=== PATIENT | female | born 1985 | race Caucasian/White ===

== ENCOUNTER 2018-02-05 20:07 | Outpatient (CLI) | payer MEDICAID ==
[2018-02-05 21:10] LABS: ADD MAN DIFF? NO
[2018-02-05 21:12] LABS: WHITE BLOOD COUNT 12.8 10^3/ul (4.8-10.8)
[2018-02-05 21:12] LABS: BASOPHILS % 0.2 % (0.0-2.0); EOSINOPHILS # 0.2 10^3/ul (0.0-0.5); EOSINOPHILS % 1.3 % (0.0-7.0); HEMATOCRIT 34.4 % (37.0-47.0); HEMOGLOBIN 12.2 g/dl (12.0-16.0); LYMPHOCYTES % 15.3 % (15.0-51.0); MEAN CORPUSCULAR HEMOGLOBIN 31.1 pg (29.0-33.0); MEAN CORPUSCULAR HGB CONC 35.5 g/dl (32.0-37.0); MEAN CORPUSCULAR VOLUME 87.8 fl (82.0-101.0); MEAN PLATELET VOLUME 9.8 fl (7.4-10.4); MONOCYTE # 1.1 10^3/ul (0.3-0.9); MONOCYTES % 8.7 % (0.0-11.0); NEUTROPHIL # 9.4 10^3/ul (1.6-7.5); NEUTROPHILS % 73.5 % (39.0-77.0); PLATELET COUNT 241 10^3/UL (140-415); RED BLOOD COUNT 3.92 10^6/ul (4.20-5.40); RED CELL DISTRIBUTION WIDTH 13.1 % (11.5-14.5)
[2018-02-05 21:40] LABS: ADD UMIC NO; UR ASCORBIC ACID 40 mg/dL (NEGATIVE); UR BILIRUBIN (Dip) NEGATIVE (NEGATIVE); UR BLOOD (Dip) NEGATIVE (NEGATIVE); UR CLARITY CLEAR (CLEAR); UR COLOR YELLOW (YELLOW); UR GLUCOSE (Dip) 3+ mg/dL (NEGATIVE); UR KETONES (Dip) TRACE mg/dL (NEGATIVE); UR LEUKOCYTE ESTERASE (Dip) NEGATIVE Leu/ul (NEGATIVE); UR NITRITE (Dip) NEGATIVE (NEGATIVE); UR SPECIFIC GRAVITY (Dip) 1.023 (1.003-1.030); UR TOTAL PROTEIN (Dip) NEGATIVE (NEGATIVE); UR UROBILINOGEN (Dip) NEGATIVE (NEGATIVE)
[2018-02-05 21:47] LABS: ALANINE AMINOTRANSFERASE 18 IU/L (13-69); ALBUMIN 3.1 g/dl (3.3-4.9); ALBUMIN/GLOBULIN RATIO 1.03; ALKALINE PHOSPHATASE 99 IU/L (42-121); ANION GAP 13 (8-16); ASPARTATE AMINO TRANSFERASE 16 IU/L (15-46); BILIRUBIN,INDIRECT 0.1 mg/dl (0-1.1); BILIRUBIN,TOTAL 0.1 mg/dl (0.2-1.3); BLOOD UREA NITROGEN 9 mg/dl (7-20); CALCIUM 9.1 mg/dl (8.4-10.2); CARBON DIOXIDE 24 mmol/L (21-31); CHLORIDE 107 mmol/L (97-110); CREATININE 0.38 mg/dl (0.44-1.00); GLUCOSE 109 mg/dl (70-220); POTASSIUM 3.6 mmol/L (3.5-5.1); SODIUM 140 mmol/L (135-144); TOTAL PROTEIN 6.1 g/dl (6.1-8.1); URIC ACID 4.1 mg/dl (3.1-7.9)
[2018-02-05 22:28] LABS: RUPTURE FETAL MEMBRANES NEGATIVE (NEGATIVE)
== END 2018-02-05 23:00 | disposition home or self-care (01) ==
LOC: OBT 20:07 → L-D 20:10 → OBT 23:00
DX: O26.893 Other specified pregnancy related conditions, third trimester (principal); Z3A.33 33 weeks gestation of pregnancy; N89.8 Other specified noninflammatory disorders of vagina; R10.9 Unspecified abdominal pain
CPT/HCPCS: 36415; 76817; 76818; 80053; 81003; 84112; 84560; 85025

== ENCOUNTER 2018-03-01 13:53 | Inpatient (IN) | payer MEDICAID ==
[2018-03-01] MEDS ORDERED: MISOPROSTOL 200 MCG TAB PR (16:30)
[2018-03-01] MEDS ORDERED: OXYTOCIN 30 UNITS/LR 500 ML IV (16:30)
[2018-03-01] MEDS ORDERED: METHYLERGONOVINE 0.2 MG INJ IM (16:30)
[2018-03-01] MEDS ORDERED: IBUPROFEN 600 MG TAB PO (16:30)
[2018-03-01] MEDS ORDERED: BUTORPHANOL 2 MG INJ IV (16:30)
[2018-03-01] MEDS ORDERED: CARBOPROST 250 MCG INJ IM (16:30)
[2018-03-01] MEDS ORDERED: LIDOCAINE 1% (MPF) 30 ML INJ INJ (16:30)
[2018-03-01 16:34] LABS: ADD MAN DIFF? NO
[2018-03-01 16:37] LABS: WHITE BLOOD COUNT 11.9 10^3/ul (4.8-10.8)
[2018-03-01 16:37] LABS: BASOPHILS % 0.3 % (0.0-2.0); EOSINOPHILS # 0.1 10^3/ul (0.0-0.5); EOSINOPHILS % 0.5 % (0.0-7.0); HEMATOCRIT 35.9 % (37.0-47.0); HEMOGLOBIN 12.6 g/dl (12.0-16.0); LYMPHOCYTES # 1.6 10^3/ul (0.8-2.9); LYMPHOCYTES % 13.6 % (15.0-51.0); MEAN CORPUSCULAR HEMOGLOBIN 30.9 pg (29.0-33.0); MEAN CORPUSCULAR HGB CONC 35.1 g/dl (32.0-37.0); MEAN PLATELET VOLUME 9.9 fl (7.4-10.4); MONOCYTE # 1.1 10^3/ul (0.3-0.9); MONOCYTES % 9.5 % (0.0-11.0); NEUTROPHIL # 8.9 10^3/ul (1.6-7.5); PLATELET COUNT 246 10^3/UL (140-415); RED BLOOD COUNT 4.08 10^6/ul (4.20-5.40)
[2018-03-01 16:45] LABS: INR 1.02; PROTIME 13.5 Sec (11.9-14.9); PT RATIO 1.1
[2018-03-01 16:46] LABS: PARTIAL THROMBOPLASTIN TIME 28.9 Sec (25.0-35.0)
[2018-03-01 16:51] LABS: ALANINE AMINOTRANSFERASE 22 IU/L (13-69); ALBUMIN 3.3 g/dl (3.3-4.9); ALBUMIN/GLOBULIN RATIO 1.03; ALKALINE PHOSPHATASE 139 IU/L (42-121); ANION GAP 12 (8-16); ASPARTATE AMINO TRANSFERASE 19 IU/L (15-46); BILIRUBIN,INDIRECT 0.1 mg/dl (0-1.1); BILIRUBIN,TOTAL 0.1 mg/dl (0.2-1.3); BLOOD UREA NITROGEN 8 mg/dl (7-20); CALCIUM 8.7 mg/dl (8.4-10.2); CARBON DIOXIDE 23 mmol/L (21-31); CHLORIDE 108 mmol/L (97-110); CREATININE 0.55 mg/dl (0.44-1.00); GLUCOSE 86 mg/dl (70-220); POTASSIUM 3.6 mmol/L (3.5-5.1); SODIUM 139 mmol/L (135-144); TOTAL PROTEIN 6.5 g/dl (6.1-8.1)
[2018-03-01] MEDS: LACTATED RINGER'S 1,000 ML IV ×3 (17:12→23:26)
[2018-03-01] MEDS: DINOPROSTONE 10 MG VAG SUPP VAG (17:20)
[2018-03-01 17:23] LABS: URIC ACID 5.4 mg/dl (3.1-7.9)
[2018-03-01 20:07] LABS: ADD UMIC NO; UR ASCORBIC ACID NEGATIVE (NEGATIVE); UR BILIRUBIN (Dip) NEGATIVE (NEGATIVE); UR BLOOD (Dip) NEGATIVE (NEGATIVE); UR CLARITY CLEAR (CLEAR); UR COLOR YELLOW (YELLOW); UR GLUCOSE (Dip) NEGATIVE (NEGATIVE); UR KETONES (Dip) NEGATIVE (NEGATIVE); UR LEUKOCYTE ESTERASE (Dip) NEGATIVE Leu/ul (NEGATIVE); UR NITRITE (Dip) NEGATIVE (NEGATIVE); UR SPECIFIC GRAVITY (Dip) 1.012 (1.003-1.030); UR TOTAL PROTEIN (Dip) NEGATIVE (NEGATIVE); UR UROBILINOGEN (Dip) NEGATIVE (NEGATIVE)
[2018-03-01] MEDS ORDERED: CEFAZOLIN 2 GM/50 ML (PMX) 50 ML IVPB (23:42)
[2018-03-01] MEDS ORDERED: CITRIC ACID/SODIUM CITRATE 15 ML CUP (23:43)
[2018-03-01] MEDS ORDERED: FAMOTIDINE 20 MG INJ (23:43)
[2018-03-01] MEDS ORDERED: METOCLOPRAMIDE 10 MG INJ (23:43)
[2018-03-02] MEDS ORDERED: HYDROmorphONE 0.5 MG/0.5 ML SYG IV ×2 (00:30)
[2018-03-02] MEDS ORDERED: hydrALAzine 20 MG INJ IV (00:30)
[2018-03-02] MEDS ORDERED: NALOXONE (0.4 MG/ML) INJ IV (00:30)
[2018-03-02] MEDS ORDERED: KETOROLAC 30 MG INJ IV (00:30)
[2018-03-02] MEDS ORDERED: DIPHENHYDRAMINE 50 MG INJ IV ×2 (00:30)
[2018-03-02] MEDS ORDERED: HYDROmorphONE (0.2 MG/ML) 10ML SYG IV ×3 (00:30)
[2018-03-02] MEDS ORDERED: LABETALOL HCL 20MG INJ IV (00:30)
[2018-03-02] MEDS ORDERED: ZOLPIDEM 5 MG TAB PO (00:30)
[2018-03-02] MEDS ORDERED: ONDANSETRON 4 MG INJ IV ×2 (00:30)
[2018-03-02] MEDS: CITRIC ACID/SODIUM CITRATE 15 ML CUP PO (00:58)
[2018-03-02] MEDS: FAMOTIDINE 20 MG INJ IV (00:58)
[2018-03-02] MEDS: METOCLOPRAMIDE 10 MG INJ IV (00:58)
[2018-03-02] MEDS: CEFAZOLIN 2 GM/50 ML (PMX) 50 ML IV (00:59)
[2018-03-02] MEDS: OXYTOCIN 30 UNITS/LR 500 ML IV ×3 (00:59→05:51)
[2018-03-02] MEDS ORDERED: CARBOPROST 250 MCG INJ IM (03:30)
[2018-03-02] MEDS ORDERED: OXYTOCIN 30 UNITS/LR 500 ML IV (03:30)
[2018-03-02] MEDS ORDERED: MISOPROSTOL 200 MCG TAB PR (03:30)
[2018-03-02] MEDS ORDERED: METHYLERGONOVINE 0.2 MG INJ IM (03:30)
[2018-03-02] MEDS: LANOLIN 7 GM TUBE TOP (04:13)
[2018-03-02] MEDS: KETOROLAC 30 MG INJ IV ×3 (04:13→22:00)
[2018-03-02 06:54] LABS: ADD MAN DIFF? NO
[2018-03-02 07:05] LABS: WHITE BLOOD COUNT 13.7 10^3/ul (4.8-10.8)
[2018-03-02 07:05] LABS: BASOPHILS % 0.1 % (0.0-2.0); EOSINOPHILS % 0.2 % (0.0-7.0); HEMATOCRIT 31.4 % (37.0-47.0); HEMOGLOBIN 10.8 g/dl (12.0-16.0); LYMPHOCYTES # 1.4 10^3/ul (0.8-2.9); MEAN CORPUSCULAR HEMOGLOBIN 30.8 pg (29.0-33.0); MEAN CORPUSCULAR HGB CONC 34.4 g/dl (32.0-37.0); MEAN CORPUSCULAR VOLUME 89.5 fl (82.0-101.0); MONOCYTE # 1.2 10^3/ul (0.3-0.9); MONOCYTES % 8.6 % (0.0-11.0); NEUTROPHILS % 80.5 % (39.0-77.0); PLATELET COUNT 222 10^3/UL (140-415); RED BLOOD COUNT 3.51 10^6/ul (4.20-5.40); RED CELL DISTRIBUTION WIDTH 13.3 % (11.5-14.5)
[2018-03-02] MEDS: IBUPROFEN 600 MG TAB PO (07:57)
[2018-03-02] MEDS: METHYLDOPA 250 MG TAB PO ×2 (09:00→21:00)
[2018-03-02] MEDS: SENNA/DOCUSATE NA (8.6MG/50MG) TAB PO ×2 (10:36→21:00)
[2018-03-02] MEDS: DEXTROSE 5%-LR 1,000 ML IV (16:19)
[2018-03-02 17:25] LABS: RAPID PLASMA REAGIN NONREACTIVE (NR)
[2018-03-03] MEDS: IBUPROFEN 600 MG TAB PO ×3 (06:35→17:43)
[2018-03-03 08:52] LABS: ADD MAN DIFF? NO
[2018-03-03 08:58] LABS: WHITE BLOOD COUNT 13.8 10^3/ul (4.8-10.8)
[2018-03-03 08:58] LABS: BASOPHILS % 0.2 % (0.0-2.0); EOSINOPHILS # 0.1 10^3/ul (0.0-0.5); EOSINOPHILS % 0.8 % (0.0-7.0); HEMATOCRIT 32.1 % (37.0-47.0); LYMPHOCYTES # 1.7 10^3/ul (0.8-2.9); LYMPHOCYTES % 12.6 % (15.0-51.0); MEAN CORPUSCULAR HEMOGLOBIN 30.9 pg (29.0-33.0); MEAN CORPUSCULAR HGB CONC 34.3 g/dl (32.0-37.0); MEAN CORPUSCULAR VOLUME 90.2 fl (82.0-101.0); MEAN PLATELET VOLUME 10.1 fl (7.4-10.4); MONOCYTE # 1.2 10^3/ul (0.3-0.9); MONOCYTES % 8.6 % (0.0-11.0); NEUTROPHIL # 10.6 10^3/ul (1.6-7.5); NEUTROPHILS % 76.7 % (39.0-77.0); PLATELET COUNT 234 10^3/UL (140-415); RED BLOOD COUNT 3.56 10^6/ul (4.20-5.40); RED CELL DISTRIBUTION WIDTH 13.6 % (11.5-14.5)
[2018-03-03] MEDS: METHYLDOPA 250 MG TAB PO ×2 (09:00→21:00)
[2018-03-03] MEDS: SENNA/DOCUSATE NA (8.6MG/50MG) TAB PO ×2 (09:03→21:57)
[2018-03-04] MEDS: IBUPROFEN 600 MG TAB PO ×3 (00:14→12:30)
[2018-03-04] MEDS: OXYCODONE/ACETAMINOPHEN (5/325) TAB PO (08:47)
[2018-03-04] MEDS: SENNA/DOCUSATE NA (8.6MG/50MG) TAB PO (08:56)
[2018-03-04] MEDS: METHYLDOPA 250 MG TAB PO (09:00)
[2018-03-04] MEDS ORDERED: DIPHTH/TET/ACEL PERTUSS (ADULT) 0.5 ML VIAL IM* (09:00)
[2018-03-04] MEDS: DIPHTH/TET/ACEL PERTUSS (ADULT) 0.5 ML VIAL IM* (14:18)
[2018-03-04] MEDS ORDERED: BUPIVACAINE 0.75%/DEXT (SPINAL) 2 ML INJ (22:25)
[2018-03-04] MEDS ORDERED: OXYTOCIN 10 UNIT INJ (22:25)
[2018-03-04] MEDS ORDERED: morphine SULFATE/PF (10 MG/10 ML) INJ (22:25)
[2018-03-04] MEDS ORDERED: OXYTOCIN 30 UNITS/LR 500 ML IV (22:25)
== END 2018-03-04 14:45 | disposition home or self-care (01) | DRG 765 ==
LOC: L-D 13:53 → PP1 03-02 14:47
PROC: 10D00Z1 Extraction of Products of Conception, Low, Open Approach (ICD-10-PCS; principal; 2018-03-02)
PROC: 3E0234Z Introduction of Serum, Toxoid and Vaccine into Muscle, Percutaneous Approach (ICD-10-PCS; 2018-03-04)
DX: O76 Abnormality in fetal heart rate and rhythm complicating labor and delivery (principal); O10.02 Pre-existing essential hypertension complicating childbirth; Z37.0 Single live birth; Z3A.37 37 weeks gestation of pregnancy; Z23 Encounter for immunization
CPT/HCPCS: 80053; 81003; 84560; 85025; 85610; 85730; 86592; 86850; 86900; 86901; 88307; 90715; 99464